=== PATIENT | male | born 1995 | race Caucasian/White ===

== ENCOUNTER 2024-12-18 19:19 | Emergency (ER) | payer SELFPAY ==
--- NOTE | 2024-12-18 19:20 | XRR_ITS ---
PROCEDURE INFORMATION: Exam: XR Left Foot Exam date and time: 12/18/2024 7:36 PM Age: 29 years old Clinical indication: Injury or trauma; Fall; Blunt trauma; Foot; Left; Additional info: Pain TECHNIQUE: Imaging protocol: Radiologic exam of the left foot. Views: 3 or more views. COMPARISON: No relevant prior studies available. FINDINGS: Bones/joints: Old-appearing fracture fragment adjacent to tip of the medial malleolus. Correlate with symptoms. [place] to be old posttraumatic changes proximal phalanx of the 5th toe. Vertical lucency medial base of the 2nd metatarsal only seen on oblique view may represent subtle nondisplaced fracture. Maybe early bunion medial aspect head of the 1st metatarsal. Soft tissues: Normal. XR/XR foot LT min 3V* [id number] IMPRESSION: 1. Possible nondisplaced vertical recent fracture medial base of the 2nd metatarsal. 2. Old-appearing fracture fragment adjacent to the tip of the medial malleolus. Correlate clinically for age of fracture. 3. [place] to be old healed posttraumatic changes proximal phalanx of the 5th toe.
[2024-12-18 19:24] VITALS: BP 134/76; PULSE 86; RESP 16; TEMP 36.7; O2SAT 98
--- NOTE | 2024-12-18 19:39 | XRR_ITS ---
PROCEDURE INFORMATION: Exam: XR Left Ankle Exam date and time: 12/18/2024 7:38 PM Age: 29 years old Clinical indication: Injury or trauma; Fall; Blunt trauma; Ankle; Left; Additional info: Fall, pain TECHNIQUE: Imaging protocol: Radiologic exam of the left ankle. Views: 3 or more views. COMPARISON: CR (LOW EXM, ) 12/18/2024 7:36 PM FINDINGS: Bones/joints: Avulsion fracture adjacent to the tip of the medial malleolus. This appears old but this needs to be correlated clinically age of fracture. Increased bony density between the anterior aspect of the dome of the talus and anterior talus may represent healing of the old posttraumatic changes. Soft tissues: Normal. XR/XR ankle LT min 3V* [id number] IMPRESSION: Avulsion fracture adjacent tip medial malleolus appearing old but this needs to be correlated clinically as to age. Possibly old posttraumatic changes between the anterior aspect of the dome of the talus and anterior talus.
--- NOTE | 2024-12-18 19:39 | ED_ITS ---
HPI - Extremity Problem General: Chief complaint: Extremity Injury, Lower Stated complaint: LT foot pain Time Seen by Provider: 12/18/24 19:37 History of Present Illness: 29-year-old man with no significant past medical history presents to the emergency room with left foot and ankle pain. He says he fell off the porch few days ago and twisted it but the pain was not very severe. Then today he was at work and twisted it again and now the pain is such that he cannot walk on it. He says it hurts from his middle toe at the base up to the top of his foot and bilateral malleolus. Perhaps some mild bruising. Some mild medial malleoli are swelling. No obvious deformities. Diffuse tenderness to palpation. Neurovascularly intact. Related Data Previous Rx's ?Medication ?Instructions ?Recorded tramadol 50 mg tablet 50 mg PO Q8H PRN pain #20 ta bs 12/18/24 Allergies Allergy/AdvReac Type Severity Reaction Status Date / Time No Known Allergies Allergy Verified 12/18/24 19:30 Review of Systems Narrative: Constitutional symptoms: Negative except as documented in HPI. Skin symptoms: Negative except as documented in HPI. Eye symptoms: Negative except as documented in HPI. ENMT symptoms: Negative except as documented in HPI. Respiratory symptoms: Negative except as documented in HPI. Cardiovascular symptoms: Negative except as documented in HPI. Gastrointestinal symptoms: Negative except as documented in HPI. Genitourinary symptoms: Negative except as documented in HPI. Musculoskeletal symptoms: Negative except as documented in HPI. Neurologic symptoms: Negative except as documented in HPI. Psychiatric symptoms: Negative except as documented in HPI. Endocrine symptoms: Negative except as documented in HPI. Physical Exam Narrative: EXAM NARRATIVE: General: Alert, no acute distress. Skin: warm and dry Head: Normocephalic Neck: Trachea midline Eye: Extraocular movements are intact. Ears, nose, mouth and throat: Oral mucosa moist Respiratory: Respirations are non-labored Musculoskeletal: No obvious deformity. Some mild swelling and bruising, no neurovascular deficits. Diffuse tenderness to palpation. Gastrointestinal: Abdomen does not appear distended Neurological: Alert and oriented, No focal neurological deficit observed. Psychiatric: Cooperative, appropriate mood & affect. Course Vital Signs: Vital signs: Vital Signs Temperature 98.0 F 12/18/24 19:24 Pulse Rate 86 12/18/24 19:24 Respiratory Rate 16 12/18/24 19:24 Blood Pressure 134/76 12/18/24 19:24 Pulse Oximetry 98 12/18/24 19:24 Oxygen Delivery Me thod Room Air 12/18/24 19:24 MDM - Extremity (Nontraumatic) Medical Decision Making Medical decision making: Patient's reason for coming to the emergency room foot and ankle pain on the left side. Social determinants, patient is employed and accompanied by his family I reviewed the patient's medical record. No previous visits to this facility. I reviewed the patient's current home meds Patient not currently on any chronic medications. Medical decision making: Differential diagnosis including but not limited to and based on the above HPI, review of systems and physical exam: In this patient with a musculoskeletal extremity traumatic injury and x-ray is being ordered to rule out fractures and dislocations. Orders placed to evaluate differential diagnosis based on the above differential, HPI and physical exam X-ray of the left foot: No acute fractures or dislocations. Films were interpreted by myself the emergency room provider and pending final radiology review. X-ray of the left ankle: Possible avulsion fractures of the bilateral malleoli. Films were interpreted by myself the emergency room provider and pending final radiology review. Given patient's symptomatic nature. Splint being placed and he can follow-up with Ortho for repeat films Lab Review: Laboratory results were reviewed and interpreted by myself the emergency room physician. No lab work indicated today. Assessment of risk: Level of risk: Low risk patient. Hospitalization considerations: No indications for admission today. Assessment and plan: Ankle and foot sprain ? [place] in the emergency room. Crutches. Anand wrap. - Discharged home - Discussed plan with patient. Answered any questions. - Evaluation and treatment of this problem were appropriate in the emergency setting. XR interpretation done by ED provider, pending radiology final review Discharge Plan Discharge Patient Disposition: Home Clinical Impression: Ankle sprain Condition: Stable Prescriptions: New tramadol 50 mg tablet 50 mg PO Q8H PRN (Reason: pain) Qty: 20 0RF Discharge Orders: Discharge ED (Routine); Ordered 12/18/24 Ordered By: Marina Orozco Referrals: Marquise Turcios MD [Physician, Orthopedics] - 4-7 days Referral Note: Please call for follow-up appointment Discharge Diet: Usual diet Discharge Activity: Limit activity as instructed Patient Instructions: Crutch Instructions (ED), Ankle Stirrup Splint (ED), Opioid Safety, Pain Management, Patient Portal & Samantha Instructions Activity Restrictions/Additional Instructions: Thank you for choosing [facility] for your healthcare needs today. You have been screened and evaluated and felt safe for discharge. Health conditions do change or evolve sometimes and as such it is important that you follow up with your Primary Doctor to be re checked, 3-5 days is a general good time frame for follow up. You are always welcome to return to the ED for re assessment if your symptoms are worsening or you have new concerns Print Language: German Coding Level of Care Code ED Comber Setter for Lisa Masters
[2024-12-18] MEDS: HYDROcodone-acetaminophen 10-325 mg Tablet 1 TAB PO (19:50)
== END 2024-12-18 20:33 | disposition home or self-care (01) ==
PROVIDERS: Emergency Provider Emergency Medicine
DX: S93.402A Sprain of unspecified ligament of left ankle, initial encounter (principal); W17.89XA Other fall from one level to another, initial encounter
CPT/HCPCS: 73610; 73630; 99283; J9999

== ENCOUNTER 2025-01-14 01:54 | Emergency (ER) | payer SELFPAY ==
[2025-01-14 01:59] VITALS: BP 108/67; PULSE 73; O2SAT 99
[2025-01-14 02:03] VITALS: PULSE 77; O2SAT 96
[2025-01-14 03:13] VITALS: BP 112/72; PULSE 73; O2SAT 96
--- NOTE | 2025-01-14 03:56 | ED_ITS ---
HPI - Wound/Laceration General: Chief Complaint: Wound/Laceration Stated Complaint: multiple lac on hands Time Seen by Provider: 01/14/25 02:10 History of Present Illness: Patient is a 29-year-old male who presents with lacerations to the pinky finger and palm of the hand. The injury occurred today when the patient was on the way home from work and noticed something underneath their car. While attempting to remove the object, the patient sustained lacerations to the left pinky finger and right palm. Patient initially felt that super glue would be sufficient for wound closure but has presented for medical evaluation. Patient reports tetanus vaccination was received a couple of years ago. Related Data Previous Rx's ?Medication ?Instructions ?Recorded tramadol 50 mg tablet 50 mg PO Q8H PRN pain #20 ta bs 12/18/24 Allergies Allergy/AdvReac Type Severity Reaction Status Date / Time No Known Allergies Allergy Verified 12/18/24 19:30 Physical Exam Const: COMMON NORMALS: no acute distress GENERAL APPEARANCE: cooperative; not ill appearing and not frail appearing HENMT: COMMON NORMALS: normocephalic, atraumatic and Normal external nose present HEAD & SCALP: normocephalic and atraumatic FACE & SINUS: normal facial exam and face symmetric NOSE: Normal external nose present Eye: COMMON NORMALS: Equal, round and reactive pupils present and EOMs intact bilaterally PUPIL: Yes Equal, round and reactive pupils present Neck/C-Spine: GENERAL: Yes trachea midline Chest: CHEST: Yes Symmetrical chest wall rise Resp: COMMON NORMALS: normal respiratory effort, No retractions and No use of accessory muscles Cardio: COMMON NORMALS: regular rate and regular rhythm RATE: regular rate RHYTHM: regular rhythm Neuro: LAKSHMI COMA SCALE: document GCS findings Dexter coma scale eye opening: Spontaneous Dexter coma scale verbal response: Orientated Dexter coma scale motor response: Obey commands Lakshmi coma scale total score: 15 SENSORY EXAM: Yes extremities (intact) Psych: COMMON NORMALS: speech normal SPEECH: Yes normal speech Skin: COMMON NORMALS: no rashes or lesions noted GENERAL SKIN EXAM: no rashes or lesions noted Procedures Laceration Laceration 1: Site: hand Side (If applicable): left Size (cm): 1.5 Description: linear Depth: simple, single layer Local Anesthetic: lidocaine 1% Amount of anesthesia used (mL): 1 Pre-repair: wound explored, irrigated extensively and deep structures intact Skin layer closed with: nylon Size (cm): 5-0 Number of sutures: 4 Technique: simple, interrupted Course Vital Signs: Vital signs: Vital Signs Pulse Rate 73 01/14/25 03:13 Blood Pressure 112/72 01/14/25 03:13 Pulse Oximetry 96 01/14/25 03:13 MDM - Wound/Laceration Medical Decision Making Left fifth finger laceration repaired with 4 sutures. No complications. Abrasion to the right palm was cleaned. Bandages placed. Tetanus is up-to-date. Sutures out in 7 to 10 days. Return for problems. Stable for discharge No radiology studies performed this visit Discharge Plan Discharge Patient Disposition: Home Clinical Impression: Abrasion hand Finger laceration Qualifiers: Encounter type: initial encounter Finger: little finger Damage to nail status: without damage Foreign body presence: without foreign body Laterality: left Qualified Code(s): S61.217A - Laceration without foreign body of left little finger without damage to nail, initial encounter Condition: Stable Prescriptions: No Action tramadol 50 mg tablet 50 mg PO Q8H PRN (Reason: pain) Qty: 20 0RF Discharge Orders: Discharge ED (Routine); Ordered 01/14/25 Ordered By: Satya Guzman Patient Instructions: Finger Laceration (ED), Abrasion (ED), Opioid Safety, Pain Management, Patient Portal & Samantha Instructions Activity Restrictions/Additional Instructions: Keep dry for 24 hours, then you may wash with soap and running water. Sutures out in 7-10 days. Return for any problems. Print Language: Cameroonian Coding Level of Care Code ED Warehouse Packer for Lisa Masters
== END 2025-01-14 03:15 | disposition home or self-care (01) ==
PROVIDERS: Emergency Provider Emergency Medicine
DX: S61.217A Laceration without foreign body of left little finger without damage to nail, initial encounter (principal); S60.511A Abrasion of right hand, initial encounter; W26.9XXA Contact with unspecified sharp object(s), initial encounter
CPT/HCPCS: 12001; 99282

== ENCOUNTER 2025-01-29 00:43 | Emergency (ER) | payer SELFPAY ==
[2025-01-29 00:59] VITALS: BP 131/79; PULSE 77; RESP 16; TEMP 36.6; O2SAT 97
--- NOTE | 2025-01-29 00:59 | W.ED.EXTPRO ---
HPI - Extremity Problem General: Chief complaint: Extremity Injury, Upper Stated complaint: left hand injury Time Seen by Provider: 01/29/25 00:58 History of Present Illness: Patient is a 30-year-old male with no past medical history who presents to the ED with right hand pain. A day and a half ago, he was picking up a log when it fell wrong and landed on his hand, thought it was about 50 pounds, felt a pop at that time, seemingly self reduced and splinted but the pain has been persistent so he presented to the ED. Patient is admitted in [facility] and has had broken hands before. He denies any motor or sensory changes Related Data Previous Rx's ?Medication ?Instructions ?Recorded tramadol 50 mg tablet 50 mg PO Q8H PRN pain #20 tabs 12/18/24 cyclobenzaprine 10 mg tablet 10 mg PO TID PRN muscle spasm #20 01/29/25 tabs oxycodone 5 mg tablet 5 mg PO Q6H PRN pain #10 tabs 01/29/25 Allergies Allergy/AdvReac Type Severity Reaction Status Date / Time No Known Allergies Allergy Verified 12/18/24 19:30 Review of Systems General: Reports: 10 or more systems reviewed and unremarkable except in HPI and below Physical Exam Narrative: EXAM NARRATIVE: Well-appearing, afebrile, no acute distress. Right hand with moderate swelling to dorsal surface, pain diffusely to fourth digit, no obvious deformity, 2+ radial pulse, 5 out of 5 motor and sensation to all digits and wrist joint. Compartments soft. No tenderness at elbow or shoulder joint. Course Vital Signs: Vital signs: Vital Signs Temperature 98 F 01/29/25 01:03 Pulse Rate 77 01/29/25 01:03 Respiratory Rate 16 01/29/25 01:03 Blood Pressure 131/79 01/29/25 01:03 Pulse Oximetry 97 01/29/25 01:03 Oxygen Delivery Me thod Room Air 01/29/25 01:03 MDM - Extremity (Nontraumatic) Medical Decision Making -ddx: Carpal versus metacarpal versus phalanx fracture, soft tissue injury, dislocation, considered but less likely: Compartment syndrome, neurovascular injury - Patient with the day and a half ago injury, might of self reduced and apparent fracture, on x-ray has a very mildly displaced proximal phalanx fracture of his fourth digit, seemingly correlating with this pain, nothing needing reduction, neurovascularly intact, compartment soft, improved with oxycodone. Placed in ulnar gutter splint, appointment referral placed to orthopedics clinic for their reevaluation soon, discharged in stable condition with multimodal pain control with oxycodone and Flexeril, strict return precautions given. Lab Data Radiology Impressions Hand X-Ray 01/29/25 01:10 IMPRESSION: Mildly displaced fracture of the 4th finger proximal phalanx (proximal metaphysis), with mild intra-articular extension. All radiology interpretation(s) finalized by discharge Discharge Plan Discharge Patient Disposition: Home Clinical Impression: Phalanx, proximal fracture of finger Condition: Stable Prescriptions: New cyclobenzaprine 10 mg tablet 10 mg PO TID PRN (Reason: muscle spasm) Qty: 20 0RF oxycodone 5 mg tablet 5 mg PO Q6H PRN (Reason: pain) Qty: 10 0RF No Action tramadol 50 mg tablet 50 mg PO Q8H PRN (Reason: pain) Qty: 20 0RF Discharge Orders: Discharge ED (Routine); Ordered 01/29/25 Ordered By: Raul Prakash Discharge Diet: Usual diet Discharge Activity: Limit activity as instructed Patient Instructions: Opioid Safety, Pain Management, Patient Portal & Samantha Instructions Activity Restrictions/Additional Instructions: You were seen for your hand injury, you are evaluated with an x-ray which found a fracture of your proximal phalanx of your fourth finger, this was immobilized in a splint, and your right hand needs to be completely weightbearing until you follow-up with the orthopedic surgeon, an appointment request has been placed for you. In the meantime, alternate heating pads and ice packs every 4 hours as needed for pain and swelling. Additionally for the pain, alternate ibuprofen 40 mg and Tylenol 650 mg every 6 hours as needed. For breakthrough pain, use oxycodone 5 mg every 8 hours as needed, do not drive or operate heavy machinery on this medication as it can be sedating. In addition, use the Flexeril, 10 mg every 8 hours as needed for any spasms or cramps. Return to the ED with severe worsening of the pain, inability to feel or move the hand, severe swelling or redness of the site, any other emergent concerns. Print Language: Wolof Coding Level of Care Code ED Slice Plug Cutter Operator for Lisa Masters
[2025-01-29 01:03] VITALS: BP 131/79; PULSE 77; RESP 16; TEMP 36.6; O2SAT 97
--- NOTE | 2025-01-29 01:10 | XRR_ITS ---
PROCEDURE INFORMATION: Exam: XR Right Hand Exam date and time: 01/29/2025 1:11 AM Age: 30 years old Clinical indication: Injury or trauma; Right; Patient sustained a crushing injury to RT hand while handling firewood logs. Swelling to dorsal aspect of hand. ; Additional info: Large piece of wood smashed hand->dorsal swelling and pain TECHNIQUE: Imaging protocol: Radiologic exam of the right hand. Views: 3 or more views. COMPARISON: No relevant prior studies available. FINDINGS: Bones/joints: Mildly displaced fracture of the 4th finger proximal phalanx (proximal metaphysis), with mild intra-articular extension. Old fracture of the 5th metacarpal. Soft tissues: Normal. XR/XR hand RT min 3V* [id number] IMPRESSION: Mildly displaced fracture of the 4th finger proximal phalanx (proximal metaphysis), with mild intra-articular extension.
[2025-01-29] MEDS: oxyCODONE 5 mg IR Tab/Cap PO ×2 (01:17→03:00)
[2025-01-29 03:00] VITALS: RESP 16; O2SAT 98
[2025-01-29 03:05] VITALS: BP 131/76; PULSE 65; RESP 16; O2SAT 98
== END 2025-01-29 03:06 | disposition home or self-care (01) ==
PROVIDERS: Emergency Provider Student in an Organized Health Care Education/Training Program
DX: S62.614A Displaced fracture of proximal phalanx of right ring finger, initial encounter for closed fracture (principal); X50.0XXA Overexertion from strenuous movement or load, initial encounter
CPT/HCPCS: 73130; 99283; J9999